=== PATIENT | male | born 1985 | race Caucasian/White ===

== ENCOUNTER 2024-11-29 14:07 | Outpatient (CLI) | payer OTHER ==
--- NOTE | 2024-11-29 15:54 | RADIOLOGY REPORT ---
[facility] INDICATION: ARTHRITIS COMPARISON: None TECHNIQUE: 6 views of the cervical spine were obtained. FINDINGS: The cervical vertebral alignment is normal. The predental space is normal. The intervertebral disc spaces are well-maintained. No significant facet arthropathy is noted. No acute fracture, vertebral compression deformity or aggressive osseous lesions. The imaged lung apices are unremarkable. IMPRESSION: No acute fracture.
== END 2024-11-29 23:59 | disposition home or self-care (01) ==
LOC: RAD 14:07
PROVIDERS: ATTEND Chiropractor
DX: M13.80 Other specified arthritis, unspecified site (principal); E11.9 Type 2 diabetes mellitus without complications
CPT/HCPCS: 72040